=== PATIENT | female | born 1945 | race Caucasian/White ===

== ENCOUNTER 2017-02-07 17:21 | Emergency (ER) | payer MEDICARE, MEDICAID ==
[~2017-02-07] VITALS: Ht 170.2 cm; Wt 50.0 kg
[2017-02-07] VITALS (7 sets, daily range): BP systolic 116–136; BP diastolic 56–66; PULSE 77–88; RESP 20–26; TEMP 98–98.4; O2SAT 94–98
[~2017-02-07 17:21] MED LIST: CETI10CH PO; DILTCD240 PO; FURO1TAB93 PO; GABA400C5 PO; GEMF600 PO; LEVA500T PO; LISI10TA PO; LOVA1TAB47 PO; MAXZTAB PO; METFPOW8 PO; METO50CR OR; MONT10TA2 PO; PARO40TA PO; PENT400 PO; PRED20 PO; PRIM50TA PO; THEO200T27 PO; TIZA2TAB PO; WARF2 PO; XANA0.5T PO; Z.0.OXYGEN INH; ZOLP10TA3 PO; [UNRECOGNIZED DRUG - OTHER]
--- NOTE | 2017-02-07 17:54 | PD ---
HPI Chief Complaint: Respiratory Distress Time Seen by Provider: 17:54 Travel History International Travel<30 days: No Contact w/Intl Traveler<30days: No Traveled to known affect area: No History of Present Illness HPI 72 year old female with history of COPD, diabetes, on oxygen 3 L nasal cannula at home, presents to emergency department for evaluation of increased wheezing and shortness of breath. Patient states this started after smoking 2 cigarettes today. She states she has been smoking tobacco cigarettes for the last 50 years. She states today she bought a pack of cigarettes a tried to smoke 2 cigarettes but ended up with this shortness of breath. Denies any recent illnesses, fever, chills. No cough. No chest pain. No focal deficits or weakness. Patient states she has been increasingly weak with decreased appetite but tells me she has recently been recently diagnosed with lung cancer about to start treatments this week. She has no other symptoms to report. PFSH Past Medical History Hx Anticoagulant Therapy: Yes Asthma: Yes Depression: Yes Heart Rhythm Problems: Yes (TACHYCARDIA) Cancer: Yes (APPENDIX) Cardiovascular Problems: Yes (sinus tach) High Cholesterol: Yes Chemotherapy: No Congestive Heart Failure: No COPD: Yes Cerebrovascular Accident: No Coronary Artery Disease: No Diabetes: Yes Diminished Hearing: No Endocrine: Yes Gastrointestinal Disorders: Yes GERD: Yes Genitourinary: No Hypertension: Yes Immune Disorder: No Musculoskeletal: Yes Neurologic: Yes Psychiatric: Yes Respiratory: Yes (copd) Thyroid Disease: No Ulcer: No Menopausal: Yes Tubal Ligation: Yes Past Surgical History Abdominal Surgery: Yes (APPENDECTOMY,RIGHT HEMICOLONECTOMY ) Appendectomy: Yes Cholecystectomy: Yes Hysterectomy: No Oral Surgery: Yes (TONSILLECTOMY AGE 16) Other Surgery: Yes Social History Alcohol Use: No Tobacco Use: No (QUIT 7 Y/O) Substance Use: No Allergies-Medications (Allergen,Severity, Reaction): Coded Allergies: Aspirin (Verified Allergy, Severe, Ulcers, 02/07/17) Adhesives (Verified Allergy, Unknown, 07/10/15) Reported Meds & Prescriptions Reported Meds & Active Scripts Active Reported Maxzide-25 (Triamterene-Hydrochlorothiazide) 37.5-25 Mg Tab 1 Tab PO DAILY Lisinopril-Hctz 10-12.5 Mg Tab 1 Tab PO DAILY Pentoxifylline CR (Pentoxifylline) 400 Mg Tab 400 Mg PO BID Metoprolol Succinate ER 24 HR (Metoprolol Succinate) 50 Mg Tab 50 Mg PO DAILY Lovastatin 20 Mg Tab 20 Mg PO DAILY Tizanidine (Tizanidine HCl) 2 Mg Tab 2 Mg PO HS Singulair (Montelukast Sodium) 10 Mg Tab 10 Mg PO HS Metformin (Metformin HCl) 500 Mg Tab 500 Mg PO BID With meals Ambien (Zolpidem Tartrate) 10 Mg Tab 10 Mg PO HS PRN Lopid (Gemfibrozil) 600 Mg Tab 600 Mg PO BID Take 30 minutes prior to breakfast and dinner Gabapentin 100 Mg Cap 100 Mg PO BID Lasix (Furosemide) 40 Mg Tab 40 Mg PO DAILY Xanax (Alprazolam) 0.5 Mg Tab 0.5 Mg PO Q8H PRN Diltiazem CD 24 HR 240 Mg Caper 240 Mg PO BID Review of Systems Except as stated in HPI: all other systems reviewed are Neg Physical Exam Narrative GENERAL: Thin chronically ill-appearing elderly female patient, sitting up in bed, in no acute distress. SKIN: Warm and dry. HEAD: Atraumatic. Normocephalic. EYES: Pupils equal and round. No scleral icterus. No injection or drainage. ENT: No nasal bleeding or discharge. Mucous membranes pink and moist. NECK: Trachea midline. No JVD. CARDIOVASCULAR: Regular rate and rhythm. No murmur appreciated. RESPIRATORY: Mild accessory muscle use. Diminished bases, inspiratory and expiratory wheeze. Breath sounds equal bilaterally. GASTROINTESTINAL: Abdomen soft, non-tender, nondistended. Hepatic and splenic margins not palpable. MUSCULOSKELETAL: No obvious deformities. No clubbing. No cyanosis. No edema. NEUROLOGICAL: Awake and alert. No obvious cranial nerve deficits. Motor grossly within normal limits. Normal speech. Data Data Last Documented VS Vital Signs Date Time Temp Pulse Resp B/P Pulse Ox O2 Delivery O2 Flow Rate FiO2 02/07/17 21:48 98.0 79 20 136/57 98 Nasal Cannula 4 Orders Complete Blood Count With Diff (02/07/17 17:50) Basic Metabolic Panel (Bmp) (02/07/17 17:50) B-Type Natriuretic Peptide (02/07/17 17:50) Act Partial Throm Time (Ptt) (02/07/17 17:50) Prothrombin Time / Inr (Pt) (02/07/17 17:50) Magnesium (Mg) (02/07/17 17:50) Ckmb (Isoenzyme) Profile (02/07/17 17:50) Troponin I (02/07/17 17:50) Urinalysis - C+S If Indicated (02/07/17 17:50) Influenzae A/B Antigen (02/07/17 17:50) Blood Culture (02/07/17 17:50) Iv Access Insert/Monitor (02/07/17 17:50) Electrocardiogram (02/07/17 17:50) Ecg Monitoring (02/07/17 17:50) Oximetry (02/07/17 17:50) Oxygen Administration (02/07/17 17:50) Chest, Single Ap (02/07/17 17:50) Sodium Chloride 0.9% Flush (Ns Flush) (02/07/17 18:00) Methylprednisolone So Succ Inj (Solumedr (02/07/17 18:00) Albuterol-Ipratropium Neb (Duoneb Neb) (02/07/17 18:00) Diet Heart Healthy (02/07/17 Dinner) Albuterol-Ipratropium Neb (Duoneb Neb) (02/07/17 20:00) Labs Laboratory Tests Test 02/07/17 02/07/17 17:55 19:35 White Blood Count 12.0 TH/MM3 Red Blood Count 4.11 MIL/MM3 Hemoglobin 13.2 GM/DL Hematocrit 39.6 % Mean Corpuscular Volume 96.3 FL Mean Corpuscular Hemoglobin 32.1 PG Mean Corpuscular Hemoglobin 33.3 % Concent Red Cell Distribution Width 13.9 % Platelet Count 321 TH/MM3 Mean Platelet Volume 8.9 FL Neutrophils (%) (Auto) 80.6 % Lymphocytes (%) (Auto) 10.5 % Monocytes (%) (Auto) 8.4 % Eosinophils (%) (Auto) 0.1 % Basophils (%) (Auto) 0.4 % Neutrophils # (Auto) 9.6 TH/MM3 Lymphocytes # (Auto) 1.3 TH/MM3 Monocytes # (Auto) 1.0 TH/MM3 Eosinophils # (Auto) 0.0 TH/MM3 Basophils # (Auto) 0.1 TH/MM3 CBC Comment DIFF FINAL Differential Comment Prothrombin Time 10.2 SEC Prothromb Time International 0.9 RATIO Ratio Activated Partial 24.4 SEC Thromboplast Time Sodium Level 138 MEQ/L Potassium Level 4.2 MEQ/L Chloride Level 93 MEQ/L Carbon Dioxide Level 38.6 MEQ/L Anion Gap 6 MEQ/L Blood Urea Nitrogen 25 MG/DL Creatinine 0.56 MG/DL Estimat Glomerular Filtration 107 ML/MIN Rate Random Glucose 149 MG/DL Calcium Level 9.5 MG/DL Magnesium Level 1.7 MG/DL Total Creatine Kinase 55 U/L Troponin I LESS THAN 0.02 NG/ML B-Type Natriuretic Peptide 150 PG/ML Urine Color LIGHT-YELLOW Urine Turbidity CLEAR Urine pH 6.0 Urine Specific [place] 1.006 Urine Protein NEG mg/dL Urine Glucose (UA) NEG mg/dL Urine Ketones NEG mg/dL Urine Occult Blood NEG Urine Nitrite NEG Urine Bilirubin NEG Urine Urobilinogen LESS THAN 2.0 MG/DL Urine Leukocyte Esterase NEG Urine WBC 1 /hpf Urine Squamous Epithelial <1 /hpf Cells Urine Mucus FEW /lpf Microscopic Urinalysis Comment CULT NOT INDICATED MDM Medical Decision Making Medical Screen Exam Complete: Yes Emergency Medical Condition: Yes Medical Record Reviewed: Yes Differential Diagnosis COPD exacerbation versus bronchitis versus pneumonia versus influenza Narrative Course 72-year-old female presents to the emergency department for evaluation of shortness of breath with increased wheezing after smoking 2 cigarettes today. Patient appears chronically ill. She is tachypneic with mild accessory muscle use on examination. Inspiratory and expiratory wheeze noted. Patient was given IV Solu-Medrol and DuoNeb 3. CBC is with mild leukocytosis of 12, otherwise unremarkable. BMP is with mild hypercarbia 38.6., Random glucose 149. BNP is 150. Troponin is less than 0.02. Influenza screen is negative. Chest x-ray shows no acute disease. Mild hyperinflation consistent with known underlying emphysema. Following ministration a DuoNeb treatment, patient continues to have some wheezing but reports she feels much better. She is requesting something to eat and to be discharged home. Patient is given a dinner tray. She'll be given additional DuoNeb treatments while she is in the emergency department. Patient has eaten her dinner tray. She states she is feeling much better. She does have DuoNeb treatments at home and a nebulizer machine. She'll be discharged home to continue treatments. She agrees to follow-up with her primary care provider and return immediately with any acute worsening symptoms. 223 patient is still in the room. I am informed that case management is attempting to get her transportation home. I have let my attending Dr. Almodovar know she is still here in case of a change in her status. She remains stable and discharged at this time. Diagnosis Primary Impression: COPD exacerbation Referrals: Primary Care Physician Patient Instructions: COPD (Chronic Obstructive Pulmonary Disease) (ED), General Instructions, Nutrition Guidelines for People with COPD (ED) Departure Forms: Tests/Procedures Additional Instructions: Continue nebulized breathing treatments at home every 2-4 hours as needed Follow-up with a primary care provider Follow-up with your bass fisher Return immediately with any acute worsening of symptoms Med/Other Pt SpecificInfo: No Change to Meds Disposition: 01 DISCHARGE HOME Condition: Stable Melvina Chase Feb 07, 2017 17:54
[2017-02-07] MEDS: RESP: ALBUTEROL 2.5 MG/IPRATROPIUM 0.5 MG NEB (SCH) INH ×4 (18:00→19:54)
[2017-02-07] MEDS ORDERED: methylPREDNISolone SOD SUCC 125 MG/2 ML VIAL IVP ONE (18:00)
[2017-02-07] MEDS ORDERED: SODIUM CHLORIDE 0.9% FLUSH 5 ML FLUSH IVF PRN (18:00)
[2017-02-07] MEDS ORDERED: DILT-64 PO (18:03)
[2017-02-07] MEDS ORDERED: ALPR.5 PO (18:04)
[2017-02-07] MEDS ORDERED: FURO1TAB60 PO (18:05)
[2017-02-07] MEDS ORDERED: GABA100C4 PO (18:06)
[2017-02-07] MEDS ORDERED: GEMF600 PO (18:08)
[2017-02-07] MEDS ORDERED: AMBI10TA PO (18:10)
[2017-02-07] MEDS ORDERED: METF500T PO (18:12)
[2017-02-07] MEDS ORDERED: MONT10TA2 PO (18:13)
[2017-02-07] MEDS ORDERED: TIZA2TAB PO (18:16)
[2017-02-07 18:19] LABS: AUTOMATED NEUTROPHIL # 9.6 TH/MM3 (1.8-7.7); BASOPHIL # 0.1 TH/MM3 (0-0.2); BASOPHIL % 0.4 % (0.0-2.0); EOSINOPHIL % 0.1 % (0.0-4.0); HEMATOCRIT 39.6 % (35.0-46.0); HEMO FLAGS DIFF FINAL; LYMPH % 10.5 % (9.0-44.0); LYMPHOCYTE # 1.3 TH/MM3 (1.0-4.8); MEAN CELL VOLUME 96.3 FL (80.0-100.0); MEAN CORPUSCULAR HEMOGLOBIN 32.1 PG (27.0-34.0); MEAN CORPUSCULAR HGB CONC 33.3 % (32.0-36.0); MONO % 8.4 % (0.0-8.0); NEUT % 80.6 % (16.0-70.0); PLATELET COUNT 321 TH/MM3 (150-450); RED BLOOD COUNT 4.11 MIL/MM3 (4.00-5.30); RED CELL DISTRIBUTION WIDTH 13.9 % (11.6-17.2)
[2017-02-07] MEDS ORDERED: LOVA20TA PO (18:19)
[2017-02-07] MEDS ORDERED: METO50TA11 PO (18:20)
[2017-02-07] MEDS ORDERED: LISI10TA PO (18:22)
[2017-02-07] MEDS ORDERED: PENT400T19 PO (18:22)
[2017-02-07] MEDS ORDERED: MAXZTAB PO (18:24)
[2017-02-07 18:29] LABS: APTT (PATIENT) 24.4 SEC (24.3-30.1); INTERNATIONAL NORMALIZED RATIO 0.9 RATIO; PROTHROMBIN TIME - PATIENT 10.2 SEC (9.8-11.6)
--- NOTE | 2017-02-07 18:42 | RADRPT ---
EXAM DATE/TIME: 02/07/2017 18:02 [facility] COMPARISON: CT PULMONARY ANGIOGRAM, July 11, 2015, 10:39. CHEST SINGLE AP, July 11, 2015, 8:16. INDICATIONS : Short of breath MEDICAL HISTORY : Emphysema SURGICAL HISTORY : None. ENCOUNTER: Initial ACUITY: 1 day PAIN SCORE: 0/10 LOCATION: chest FINDINGS: A single view of the chest demonstrates the lungs to be symmetrically mildly hyperinflated without ev idence of mass, infiltrate or effusion. The cardiomediastinal contours are unremarkable. Osseous st ructures are intact. There are overlying electrocardiogram leads and oxygen tubing. CONCLUSION: No acute disease. Mild hyperinflation consistent with known underlying emphysema. Julian Harmon MD on February 07, 2017 at 18:39 Board Certified Radiologist. This report was verified electronically.
[2017-02-07 18:48] LABS: ANION GAP 6 MEQ/L (5-15); BICARBONATE 38.6 MEQ/L (21.0-32.0); BLOOD UREA NITROGEN 25 MG/DL (7-18); CHLORIDE 93 MEQ/L (98-107); CREATINE KINASE 55 U/L (26-192); GLOMERULAR FILTRATION RATE 107 ML/MIN (>89); MAGNESIUM 1.7 MG/DL (1.5-2.5); POTASSIUM 4.2 MEQ/L (3.5-5.1); SODIUM (NA) 138 MEQ/L (136-145)
[2017-02-07 19:52] LABS: BLOOD, URINE NEG (NEG); COMMENT (UR) CULT NOT INDICATED; CULTURE IF INDICATED CULT NOT INDICATED; GLUCOSE,URINE NEG (NEG); KETONE, URINE NEG (NEG); MUCUS URINE FEW /lpf (OCC); NITRITE,URINE NEG (NEG); SQUAMOUS EPITHELIAL CELL URINE <1 /hpf (0-5); URINE COLOR LIGHT-YELLOW (YELLW/STRAW)
[2017-02-08 07:27] VITALS: BP 214/89; PULSE 85; RESP 24; O2SAT 96
--- NOTE | 2017-02-08 14:46 | EKG ---
Date Performed: 02/07/2017 Time Performed: 17:59:26 PTAGE: 72 years EKG: Sinus rhythm NORMAL ECG PREVIOUS TRACING : 07/11/2015 09.34 Compared to the previous tracing, T wave abnormalities are no longer present DOCTOR: Ilya Ellington Interpretating Date/Time 02/08/2017 14:44:55
== END 2017-02-08 08:51 | disposition home or self-care (01) ==
LOC: NEPE 17:21 → NEPA 02-08 08:51
DX: J44.1 Chronic obstructive pulmonary disease with (acute) exacerbation (principal); J45.909 Unspecified asthma, uncomplicated; F17.210 Nicotine dependence, cigarettes, uncomplicated; I10 Essential (primary) hypertension; E11.9 Type 2 diabetes mellitus without complications; Z79.84 Long term (current) use of oral hypoglycemic drugs; Z79.899 Other long term (current) drug therapy
CPT/HCPCS: 71010; 80048; 81001; 82550; 83735; 83880; 84484; 85025; 85610; 85730; 87040; 87804; 93005; 94640; 94664; 96374; 99285; J2930

== ENCOUNTER 2017-02-12 11:37 | Inpatient (IN) | payer MEDICARE, MEDICAID ==
[~2017-02-12] VITALS: Ht 170.2 cm; Wt 50.0 kg
[2017-02-12] VITALS (10 sets, daily range): BP systolic 116–146; BP diastolic 62–76; PULSE 20–117; RESP 14–16; TEMP 97.3; O2SAT 93–100
[~2017-02-12 11:37] MED LIST changes: +ALPR.5 PO; +AMBI10TA PO; +DILT-64 PO; +FURO1TAB60 PO; +GABA100C4 PO; +LOVA20TA PO; +METF500T PO; +METO50TA11 PO; +PENT400T19 PO
[2017-02-12] MEDS ORDERED: RESP: ALBUTEROL 2.5 MG/IPRATROPIUM 0.5 MG NEB (SCH) INH ONE (12:30)
[2017-02-12] MEDS ORDERED: SODIUM CHLORIDE 0.9% FLUSH 10 ML FLUSH IVF PRN (12:30)
[2017-02-12] MEDS ORDERED: SODIUM CHLOR 0.9% 1000 ML INJ 1,000 ML IV SCH (12:30)
--- NOTE | 2017-02-12 12:39 | PD ---
HPI Chief Complaint: Respiratory Symptoms Time Seen by Provider: 12:07 Travel History International Travel<30 days: No Contact w/Intl Traveler<30days: No Traveled to known affect area: No History of Present Illness HPI This 72-year-old woman with severe COPD, recently diagnosed lung cancer, who presents to the emergency department complaining of worsening weakness shortness of breath and really not been ill to care for self. She states she came in because she hasn't been eating because she can't exclude for herself. She states she is limited by pretty significant dyspnea on exertion has been ongoing for some time. She states that she lives alone. Her neighbor goes to the grocery store for her and has for a couple years. Recently the [place] [facility] is been sending someone a comment 3 times a week to help out with housekeeping. She was in the emergency department now for 5 days ago with increased shortness of breath and was treated for COPD exacerbation. She's on 3 L of home oxygen, follows with Dr. Ferrell. He also was recently diagnosed with lung cancer based on the pad positive spiculated nodule on her imaging. They were electing to forego a biopsy because of her tenuous status, and do some radiation. She has not started this. She denies any cough, no fevers or chills, no chest pain, no other associated complaints. States symptoms been worse since she was in the hospital 5 days ago. History Past Medical History Narrative Medical COPD/asthma, on 3 L of home oxygen, extensive deep plus pack year smoking history Pneumonia, GERD Diabetes CAD Arthritis Anxiety Tetanus Vaccination: < 5 Years Influenza Vaccination: Yes Menopausal: Yes Social History Alcohol Use: No Tobacco Use: Yes (smokes 1/2 pd) Allergies-Medications (Allergen,Severity, Reaction): Coded Allergies: Aspirin (Verified Allergy, Severe, Ulcers, 02/12/17) Adhesives (Verified Allergy, Unknown, 02/12/17) Reported Meds & Prescriptions Reported Meds & Active Scripts Active Reported Maxzide-25 (Triamterene-Hydrochlorothiazide) 37.5-25 Mg Tab 1 Tab PO DAILY Lisinopril-Hctz 10-12.5 Mg Tab 1 Tab PO DAILY Pentoxifylline CR (Pentoxifylline) 400 Mg Tab 400 Mg PO BID Metoprolol Succinate ER 24 HR (Metoprolol Succinate) 50 Mg Tab 50 Mg PO DAILY Lovastatin 20 Mg Tab 20 Mg PO DAILY Tizanidine (Tizanidine HCl) 2 Mg Tab 2 Mg PO HS Singulair (Montelukast Sodium) 10 Mg Tab 10 Mg PO HS Metformin (Metformin HCl) 500 Mg Tab 500 Mg PO BID With meals Ambien (Zolpidem Tartrate) 10 Mg Tab 10 Mg PO HS PRN Lopid (Gemfibrozil) 600 Mg Tab 600 Mg PO BID Take 30 minutes prior to breakfast and dinner Gabapentin 100 Mg Cap 100 Mg PO BID Lasix (Furosemide) 40 Mg Tab 40 Mg PO DAILY Xanax (Alprazolam) 0.5 Mg Tab 0.5 Mg PO Q8H PRN Diltiazem CD 24 HR 240 Mg Caper 240 Mg PO BID Review of Systems Except as stated in HPI: all other systems reviewed are Neg Physical Exam Narrative GENERAL: 72-year-old woman, chronically ill-appearing, no acute distress. SKIN: Warm and dry. HEAD: Atraumatic. Normocephalic. EYES: Pupils equal and round. No scleral icterus. No injection or drainage. ENT: No nasal bleeding or discharge. Mucous membranes pink and moist. NECK: Trachea midline. No JVD. CARDIOVASCULAR: Heart rate rapid but regular. No murmurs. RESPIRATORY: Moderate tachypnea. Able to speak in full sentences. Diminished air movement with mild diffuse wheezing. GASTROINTESTINAL: Abdomen soft, non-tender, nondistended. Hepatic and splenic margins not palpable. MUSCULOSKELETAL: No obvious deformities. No edema. Decreased muscle bulk. NEUROLOGICAL: Awake and alert. No obvious cranial nerve deficits. Motor grossly within normal limits. Normal speech. PSYCHIATRIC: Somewhat anxious appearing. Data Data Last Documented VS Vital Signs Date Time Temp Pulse Resp B/P Pulse Ox O2 Delivery O2 Flow Rate FiO2 02/12/17 14:13 16 96 Nasal Cannula 3.00 02/12/17 14:13 116 116/62 02/12/17 11:39 97.3 Orders Complete Blood Count With Diff (02/12/17 12:20) Comprehensive Metabolic Panel (02/12/17 12:20) B-Type Natriuretic Peptide (02/12/17 12:20) Troponin I (02/12/17 12:20) Iv Access Insert/Monitor (02/12/17 12:20) Ecg Monitoring (02/12/17 12:20) Oximetry (02/12/17 12:20) Oxygen Administration (02/12/17 12:20) Ct Pulmonary Angiogram (02/12/17 12:20) Sodium Chloride 0.9% Flush (Ns Flush) (02/12/17 12:30) Albuterol-Ipratropium Neb (Duoneb Neb) (02/12/17 12:30) Sodium Chlor 0.9% 1000 Ml Inj (Ns 1000 M (02/12/17 12:30) Diet Regular Basic (02/12/17 Lunch) Iohexol 350 Inj (Omnipaque 350 Inj) (02/12/17 13:41) Methylprednisolone So Succ Inj (Solumedr (02/12/17 14:30) Consult Palliative Care (02/12/17 ) (Hub Use Only)Inp Phy Cons/Ref (02/12/17 ) Electrocardiogram (02/12/17 11:35) Labs Laboratory Tests Test 02/12/17 12:40 White Blood Count 9.8 TH/MM3 Red Blood Count 4.68 MIL/MM3 Hemoglobin 14.9 GM/DL Hematocrit 44.8 % Mean Corpuscular Volume 95.8 FL Mean Corpuscular Hemoglobin 31.8 PG Mean Corpuscular Hemoglobin 33.2 % Concent Red Cell Distribution Width 13.0 % Platelet Count 410 TH/MM3 Mean Platelet Volume 9.6 FL Neutrophils (%) (Auto) 72.0 % Lymphocytes (%) (Auto) 16.7 % Monocytes (%) (Auto) 9.3 % Eosinophils (%) (Auto) 0.7 % Basophils (%) (Auto) 1.3 % Neutrophils # (Auto) 7.1 TH/MM3 Lymphocytes # (Auto) 1.6 TH/MM3 Monocytes # (Auto) 0.9 TH/MM3 Eosinophils # (Auto) 0.1 TH/MM3 Basophils # (Auto) 0.1 TH/MM3 CBC Comment DIFF FINAL Differential Comment Sodium Level 143 MEQ/L Potassium Level 3.6 MEQ/L Chloride Level 98 MEQ/L Carbon Dioxide Level 40.5 MEQ/L Anion Gap 5 MEQ/L Blood Urea Nitrogen 18 MG/DL Creatinine 0.57 MG/DL Estimat Glomerular Filtration 105 ML/MIN Rate Random Glucose 138 MG/DL Calcium Level 10.4 MG/DL Total Bilirubin 0.4 MG/DL Aspartate Amino Transf 18 U/L (AST/SGOT) Alanine Aminotransferase 41 U/L (ALT/SGPT) Alkaline Phosphatase 268 U/L Troponin I 0.19 NG/ML B-Type Natriuretic Peptide 666 PG/ML Total Protein 7.2 GM/DL Albumin 3.4 GM/DL [facility] Medical Decision Making Medical Screen Exam Complete: Yes Emergency Medical Condition: Yes Interpretation(s) LABS: CBC unremarkable. CMP: Generally unremarkable. CO2 40.5. Troponin 0.[address] pulmonary angiogram: Emphysematous changes. No PE. Differential Diagnosis COPD, COPD exacerbation, pneumonia, PE, malignancy, other Narrative Course Medical decision making INITIAL: This 72-year-old woman is who appears to have severe baseline COPD with marked limitation her functional status. This appears to be worsening but on a very gradual basis. She was treated for an acute COPD exacerbation. I think she still smoking. She comes in today mostly because of worsening functional status, inability to care for self. I spoke with Floridalma, our trimming caser. She spoke with the patient is not at all interested in placement. States she may be interested in hospice given her severe baseline COPD, worsening functional status, and recent diagnosis of malignancy. She is not sure she is going to be able to complete radiation therapy. We'll rule out PE, check x-ray, check for any other acute cause a could be causing her worsening status. We will talk to her tractor sweeper operator. We will likely plan on admission for treatment for worsening COPD symptoms, and probably palliative care consultation. Patient is agreeable. FINAL: Patient worsening COPD symptoms. Is likely subacute exacerbation. She also had significant limitation in functional decline. I spoke with Dr. Vivas, the patient's tractor sweeper operator. He states the patient has done poorly for several months of weight loss and worsening functional status. He is agreeable palliative care consultation as is the patient. Troponin is elevated as well. We'll plan on admission for treatment COPD exacerbation, steroids, bronchodilators, and will plan on palliative care consultation. Diagnosis Primary Impression: Chronic obstructive pulmonary disease Julio Cesar Salas MD Feb 12, 2017 12:39
[2017-02-12 12:50] LABS: AUTOMATED NEUTROPHIL # 7.1 TH/MM3 (1.8-7.7); BASOPHIL # 0.1 TH/MM3 (0-0.2); BASOPHIL % 1.3 % (0.0-2.0); EOSINOPHIL # 0.1 TH/MM3 (0-0.4); EOSINOPHIL % 0.7 % (0.0-4.0); HEMATOCRIT 44.8 % (35.0-46.0); HEMO FLAGS DIFF FINAL; LYMPH % 16.7 % (9.0-44.0); LYMPHOCYTE # 1.6 TH/MM3 (1.0-4.8); MEAN CELL VOLUME 95.8 FL (80.0-100.0); MEAN CORPUSCULAR HEMOGLOBIN 31.8 PG (27.0-34.0); MEAN CORPUSCULAR HGB CONC 33.2 % (32.0-36.0); MONO % 9.3 % (0.0-8.0); PLATELET COUNT 410 TH/MM3 (150-450); RED BLOOD COUNT 4.68 MIL/MM3 (4.00-5.30); WHITE BLOOD COUNT 9.8 TH/MM3 (4.0-11.0)
[2017-02-12 12:58] LABS: CHLORIDE 98 MEQ/L (98-107); POTASSIUM 3.6 MEQ/L (3.5-5.1); SODIUM (NA) 143 MEQ/L (136-145)
[2017-02-12 13:01] LABS: ANION GAP 5 MEQ/L (5-15); BICARBONATE 40.5 MEQ/L (21.0-32.0)
[2017-02-12 13:02] LABS: BLOOD UREA NITROGEN 18 MG/DL (7-18)
[2017-02-12 13:04] LABS: ALT (GPT) 41 U/L (10-53)
[2017-02-12 13:05] LABS: AST (GOT) 18 U/L (15-37); GLOMERULAR FILTRATION RATE 105 ML/MIN (>89)
[2017-02-12 13:06] LABS: TOTAL BILIRUBIN ADULT 0.4 MG/DL (0.2-1.0)
[2017-02-12 13:07] LABS: ALKALINE PHOSPHATASE 268 U/L (45-117)
[2017-02-12] MEDS ORDERED: IOHEXOL 350 MG/ML 10 ML VIAL (for RAD DIAG) IV ONE (13:41)
--- NOTE | 2017-02-12 14:19 | RADHPO ---
EXAM DATE/TIME: 02/12/2017 13:22 [facility] COMPARISON: CT PULMONARY ANGIOGRAM, July 11, 2015, 10:39. INDICATIONS : Short of breath. IV CONTRAST: 75 cc Omnipaque 350 (iohexol) IV RADIATION DOSE: 5.59 CTDIvol (mGy) MEDICAL HISTORY : Diabetes mellitus type 2. Gastroesophageal reflux disease. Chronic obstructive pulmonary disease.Hype rtension. Asthma. Legally blind. Lung cancer. SURGICAL HISTORY : Cholecystectomy. Appendectomy.Tubal ligation.Hysterectomy. Right hemicolectomy. ENCOUNTER: Initial ACUITY: 1 day PAIN SCALE: 0/10 LOCATION: chest TECHNIQUE: Volumetric scanning of the chest was performed using a pulmonary embolism protocol MIP images were re constructed. Using automated exposure control and adjustment of the mA and/or kV according to patien t size, radiation dose was kept as low as reasonably achievable to obtain optimal diagnostic quality images. FINDINGS: PULMONARY ARTERIES: No filling defects are seen in the pulmonary arteries through the segmental level. LUNGS: Biapical emphysematous changes. There are nonspecific 8mm nodules identified in both lung bases, one on each side. PLEURAE: There is no pleural thickening or pleural effusion. MEDIASTINUM: There is good visualization of the great vessels of the middle mediastinum. No evidence of mediastin al or hilar adenopathy/mass. Granulomatous type calcifications in the left hilar lymph nodes MUSCULOSKELETAL: Within normal limits for patient age. MISCELLANEOUS: The visualized upper abdominal organs demonstrate no acute abnormality. There are granulomatous calci fications in the splenic parenchyma. Both adrenals are prominent but remain adreniform suggesting hyp erplasia CONCLUSION: 1. Significant biapical emphysematous changes with no acute infiltrate or pulmonary embolus. 2. Nonspecific 8mm nodules in both lung bases. I would recommend a three-month noncontrasted CT scan followup to ensure stability. 3. Probable adrenal hyperplasia. Sebastien Bennett MD on February 12, 2017 at 14:10 Board Certified Radiologist. This report was verified electronically.
[2017-02-12] MEDS ORDERED: methylPREDNISolone SOD SUCC 125 MG/2 ML VIAL IV PUSH ONE (14:30)
--- NOTE | 2017-02-12 16:29 | PD.CONS ---
Consult Service Palliative Care Consult Requested By Dr. Salas . Primary Care Physician Sparkle Hallman MD Reason for Consultation a. To assist with evaluation and management of symptoms including: dyspnea, anxiety b. To assist medical decision maker(s) with: better understanding of current medical conditions; weighing benefits/burdens of medical treatment options; making medical treatment decisions. . HPI History of Present Illness Miss Price is a 72-year-old female with past medical history of COPD, recurrent pneumonia, GERD, diabetes, coronary artery disease, arthritis and anxiety. Patient was recently diagnosed with probable lung cancer based on imaging that revealed a spiculated nodule. She elected to forgo a biopsy given tenuous status and was planning to start radiation therapy. It is uncertain which radiation oncologist was going to initiate treatment pathology. Patient has been to [place] emergency department twice in the past week for worsening shortness of breath, she was treated for COPD exacerbation on 02/07/17. Patient presented to [facility] emergency department on 02/12/17 with worsening shortness of breath. Notes indicate she has not been able to care for herself, she has not been eating and her activity is limited by significant shortness of breath with minimal exertion. She lives alone. She has a neighbor glucose to the grocery store for her. The [place] [facility] [employer] sends someone out 3 times a week with to help with housekeeping. At home the patient was on 3 L of oxygen. Her building maintenance supervisor is Dr. Ferrell. ER notes indicate the patient does not want to consider SNF placement. She is considering transition to comfort focused care with hospice support. Emergency room evaluation revealed: * WBC 9.8, hemoglobin 14.9, hematocrit 44.8, platelet 410, neutrophils 72% * sodium 143, potassium 3.6, chloride 98, carbon dioxide 40.5, BUN 18, creatinine 0.57, GFR 105, glucose 138, calcium 10.4 * total bilirubin 0.4, AST 18, ALT 41, alkaline phosphatase 268 * troponin 0.19 * BNP 666 * total protein 7.2, albumin 3.4 * CTA significant biapical emphysematous change with no acute infiltrate or pulmonary embolus, 8mm nodules in both lung bases, probable adrenal hyperplasia. * EKG - sinus tachycardia with PACs, right atrial abnormality, left axis deviation, anterior septal infarct, lateral T wave changes may be due to myocardial ischemia. Discussed with Dr. Salas who requests palliative care consultation for further clarification of treatment goals. Met with patient in the ER, she is dyspneic at rest. She reports worsening shortness of breath, anxiety and general debility in the past few weeks/months. She does not want continued hospitalization. She elects NO CODE. She does not want cardiac resuscitation, shock or ACLS or intubation. I reviewed her medical , social and functional history. We discussed options to continue aggressive care vs. transition to comfort measures. She desires comfort focused care with hospice support. She hopes to get out of the hospital as soon as possible. She hopes to return home, but seems open to care center for brief time to get symptoms better managed. . . Function/Cognitive Trajectory See HPI. . Past Family Social History Coded Allergies: Aspirin (Verified Allergy, Severe, Ulcers, 02/12/17) Adhesives (Verified Allergy, Unknown, 02/12/17) Past Medical History COPD/asthma, on 3 L of home oxygen, extensive deep plus pack year smoking history Pneumonia, GERD Diabetes CAD Arthritis Anxiety . Past Surgical History Appendectomy right hemicolectomy cholecystectomy tonsillectomy age 16 . Reported Medications Reported Meds & Prescriptions Reported Meds & Active Scripts Active Reported Maxzide-25 (Triamterene-Hydrochlorothiazide) 37.5-25 Mg Tab 1 Tab PO DAILY Lisinopril-Hctz 10-12.5 Mg Tab 1 Tab PO DAILY Pentoxifylline CR (Pentoxifylline) 400 Mg Tab 400 Mg PO BID Metoprolol Succinate ER 24 HR (Metoprolol Succinate) 50 Mg Tab 50 Mg PO DAILY Lovastatin 20 Mg Tab 20 Mg PO DAILY Tizanidine (Tizanidine HCl) 2 Mg Tab 2 Mg PO HS Singulair (Montelukast Sodium) 10 Mg Tab 10 Mg PO HS Metformin (Metformin HCl) 500 Mg Tab 500 Mg PO BID With meals Ambien (Zolpidem Tartrate) 10 Mg Tab 10 Mg PO HS PRN Lopid (Gemfibrozil) 600 Mg Tab 600 Mg PO BID Take 30 minutes prior to breakfast and dinner Gabapentin 100 Mg Cap 100 Mg PO BID Lasix (Furosemide) 40 Mg Tab 40 Mg PO DAILY Xanax (Alprazolam) 0.5 Mg Tab 0.5 Mg PO Q8H PRN Diltiazem CD 24 HR 240 Mg Caper 240 Mg PO BID . Current Medications Medications (Trade) Dose Ordered Sig/Juan Route Start Time Stop Time Status Last Admin (NS Flush) 2 ml UNSCH PRN IVF 02/12/17 12:30 . Family History Mother of COPD. No siblings. Substance Use Tobacco: currently smokes half pack per day Alcohol: none. Prescription med abuse: none. Illicits: none. . Psychosocial History Single. Lives alone. Retired. Supported by friends and neighbors. . Spiritual/Cultural Factors Unknown. . Health Care Surrogate: Copy in medical record Date completed: 06/25/15 Health Care Surrogate(s): Designated healthcare surrogate, Raquel Tejada. Today's verbally stated goals: Elects NO CODE. Desires comfort measures with hospice support. . Ethical and Legal Issues Patient is currently capacitated to make her own health care decisions. Should she was capacity she has designated her friend Raquel Tejada as healthcare surrogate. . Physical Exam Vital Signs Date Time Temp Pulse Resp B/P Pulse Ox O2 Delivery O2 Flow Rate FiO2 02/12/17 14:13 16 96 Nasal Cannula 3.00 02/12/17 14:13 116 16 116/62 98 Nasal Cannula 3 02/12/17 12:38 96 Nasal Cannula 3.00 02/12/17 12:35 97 Nasal Cannula 2 02/12/17 12:35 80 14 146/66 97 Nasal Cannula 2 02/12/17 11:43 117 18 96 Nasal Cannula 2 02/12/17 11:40 16 96 Nasal Cannula 2 02/12/17 11:40 96 Nasal Cannula 2 02/12/17 11:39 97.3 117 16 146/67 96 Exam CONSTITUTIONAL/GENERAL: This is thin, chronically ill appearing patient, dyspneic at rest. TUBES/LINES/DRAINS: NC, PIV. SKIN: No jaundice, rashes, or lesions. Ecchymoses on upper extremities. No wounds seen anteriorly. Skin temperature appropriate. Not diaphoretic. HEAD: Atraumatic. Normocephalic. EYES: Pupils equal and round and reactive. Extraocular motions intact. No scleral icterus. No injection or drainage. Fundi not examined. ENT: Hearing grossly normal. Nose without bleeding or purulent drainage. Throat without visible erythema, exudates, masses, or lesions. NECK: Trachea midline. CARDIOVASCULAR: Tachycardic. RESPIRATORY/CHEST: Barrel chest. Symmetric, labored respirations at rest, worsens with conversation. Bilateral course breath sounds, diminished bases with expiratory wheezing. GASTROINTESTINAL: Abdomen soft, non-tender, nondistended. No guarding. Bowel sounds present. GENITOURINARY: Without palpable bladder distension. MUSCULOSKELETAL: No mottling or clubbing. LYMPHATICS: No palpable cervical or supraclavicular adenopathy. NEUROLOGICAL: Awake and alert. Motor and sensory grossly within normal limits. Follows commands. Cognitively sharp. Moves all extremities. PSYCHIATRIC: + anxiety. . Diagnostic Tests Laboratory Laboratory Tests Test 02/12/17 12:40 White Blood Count 9.8 TH/MM3 (4.0-11.0) Red Blood Count 4.68 MIL/MM3 (4.00-5.30) Hemoglobin 14.9 GM/DL (11.6-15.3) Hematocrit 44.8 % (35.0-46.0) Mean Corpuscular Volume 95.8 FL (80.0-100.0) Mean Corpuscular Hemoglobin 31.8 PG (27.0-34.0) Mean Corpuscular Hemoglobin 33.2 % Concent (32.0-36.0) Red Cell Distribution Width 13.0 % (11.6-17.2) Platelet Count 410 TH/MM3 (150-450) Mean Platelet Volume 9.6 FL (7.0-11.0) Neutrophils (%) (Auto) 72.0 % (16.0-70.0) Lymphocytes (%) (Auto) 16.7 % (9.0-44.0) Monocytes (%) (Auto) 9.3 % (0.0-8.0) Eosinophils (%) (Auto) 0.7 % (0.0-4.0) Basophils (%) (Auto) 1.3 % (0.0-2.0) Neutrophils # (Auto) 7.1 TH/MM3 (1.8-7.7) Lymphocytes # (Auto) 1.6 TH/MM3 (1.0-4.8) Monocytes # (Auto) 0.9 TH/MM3 (0-0.9) Eosinophils # (Auto) 0.1 TH/MM3 (0-0.4) Basophils # (Auto) 0.1 TH/MM3 (0-0.2) CBC Comment DIFF FINAL Differential Comment Sodium Level 143 MEQ/L (136-145) Potassium Level 3.6 MEQ/L (3.5-5.1) Chloride Level 98 MEQ/L (98-107) Carbon Dioxide Level 40.5 MEQ/L (21.0-32.0) Anion Gap 5 MEQ/L (5-15) Blood Urea Nitrogen 18 MG/DL (7-18) Creatinine 0.57 MG/DL (0.50-1.00) Estimat Glomerular Filtration 105 ML/MIN Rate (>89) Random Glucose 138 MG/DL (74-106) Calcium Level 10.4 MG/DL (8.5-10.1) Total Bilirubin 0.4 MG/DL (0.2-1.0) Aspartate Amino Transf 18 U/L (15-37) (AST/SGOT) Alanine Aminotransferase 41 U/L (10-53) (ALT/SGPT) Alkaline Phosphatase 268 U/L (45-117) Troponin I 0.19 NG/ML (0.02-0.05) B-Type Natriuretic Peptide 666 PG/ML (0-100) Total Protein 7.2 GM/DL (6.4-8.2) Albumin 3.4 GM/DL (3.4-5.0) Result Diagram: 02/12/17 1240 02/12/17 [address] Angiography 02/12/17 1220 Signed Impressions: Service Date/Time: Sunday, February 12, 2017 13:22 - CONCLUSION: 1. Significant biapical emphysematous changes with no acute infiltrate or pulmonary embolus. 2. Nonspecific 8mm nodules in both lung bases. I would recommend a three-month noncontrasted CT scan followup to ensure stability. 3. Probable adrenal hyperplasia. Sebastien Bennett MD . Patient/Family Conference Present at Family Conference: Met with patient in ED. . Family Conference Time (mins): 30 Family Conference Location: Bedside Issues Discussed: * Palliative care role, purpose, approach * Additional medical, psychosocial, and spiritual history * Patients general health, functional status, and cognitive changes in the months leading up to the current hospitalization * Patient/family understanding of the current medical problems * Patient/family understanding of prognosis * Patients goals of care as best understood from advance directives and/or conversations and/or values * Current medical treatment options and benefits/burdens of those options * Likely scenarios comparing ongoing aggressive care with a transition to comfort measures only * Questions answered to the best of my ability * Palliative care contact information provided Assessment and Plan Disease Oriented Problem List: (1) Chronic obstructive pulmonary disease (2) Lung nodules Comment: non specific 8mm lung nodules in both lungs on CTA dated 02/12/17 . (3) Elevated troponin (4) Diabetes Symptom Scale: (1) Fatigue 0-10 Scale: Unable to quantify Comment: increasing in the past few months. (2) Weight loss 0-10 Scale: Unable to quantify Comment: lost 100 pound in the past 1.5 years, unintentional. . (3) Dyspnea 0-10 Scale: Unable to quantify Comment: dyspnea at rest, worsens with conversation and exertion. . (4) Anxiety 0-10 Scale: Unable to quantify Pertinent Non-Medical Issues Psychosocial: single. Lives alone. Supported by her friend and neighbor who does grocery shopping and [place] [employer] who helps with housekeeping. Spiritual: none. Legal:Patient is currently capacitated to make her own health care decisions. Should she was capacity she has designated her friend Raquel Tejada as healthcare surrogate. Ethical issues impacting care: no known concerns at this time. . Important Contacts * Raquel robbie, friend/[facility]: [phone] or [phone] . Prognosis 72 year old patient with COPD and repeat COPD exacerbation and pneumonia. She has had significant functional decline in the past few months. Overall prognosis is poor. . Code Status: No Code Plan * Decision Maker: Patient is currently capacitated to make her own health care decisions. Should she was capacity she has designated her friend Raquel Tejada as healthcare surrogate. * NO CODE * Palliative care met with patient: Met with patient in the ER, she is dyspneic at rest. She reports worsening shortness of breath, anxiety and general debility in the past few weeks/months. She does not want continued hospitalization. She elects NO CODE. She does not want cardiac resuscitation, shock or ACLS or intubation. I reviewed her medical, social and functional history. We discussed options to continue aggressive care vs. transition to comfort measures. She desires comfort focused care with hospice support. She hopes to get out of the hospital as soon as possible. She hopes to return home, but seems open to care center for brief time to get symptoms better managed. * SYMPTOMS: anxiety: secondary to shortness of breath. Dyspnea: secondary to COPD. Questionable lung cancer. Oxygen dependent at home. * Palliative care number provided. * Palliative care will continue to follow throughout hospital course to assist with symptom management and clarification of goals as needed. . Time Spent Total Floor Time (mins): 45 Face to Face Time (mins): 30 >50% Counseling/Coord of Care: Yes Thank you for the opportunity to participate in the care of Ms. Price. Attestation To help prompt me to consider important information that might be impacting today's encounter and assessment, information from prior notes written by myself or my colleagues may have been "brought forward" into today's note. My signature on this note, however, is an attestation that I personally performed the exam, history, and/or decision-making noted today, and, unless otherwise indicated, the interactions with patient, family, and staff as well as the review of records all occurred today. I also attest that the listed assessment and stated plan reflect my best clinical judgment today based on the combination of historical information, prior notes, and today's exam/ interactions. When time spent is documented, it refers only to time spent today by the signer, or if indicated, combined time spent today by collaborating physician/nurse practitioner. . BISHOP ELLSI Feb 12, 2017 16:29
[2017-02-12] MEDS ORDERED: SODIUM CHLORIDE 0.9% FLUSH 10 ML FLUSH IV FLUSH PRN (18:15)
[2017-02-12] MEDS ORDERED: ACETAMINOPHEN/HYDROcodone 325 MG/5 MG TAB PO PRN (18:15)
[2017-02-12] MEDS ORDERED: ACETAMINOPHEN 325 MG TAB PO PRN (18:15)
[2017-02-12] MEDS ORDERED: ONDANSETRON HCL 4 MG/2 ML VIAL IVP PRN (18:15)
[2017-02-12] MEDS ORDERED: ACETAMINOPHEN/HYDROcodone 325 MG/7.5 MG TAB PO PRN (18:15)
[2017-02-12] MEDS ORDERED: NALOXONE HCL 0.4 MG/ML AMP IV PRN (18:15)
--- NOTE | 2017-02-12 18:40 | HHI.HP ---
cc: Sparkle Hlalman MD [facility]ician Sparkle Hallman MD Admission Diagnosis COPD exacerbation, dyspnea on exertion Diagnoses: (1) COPD exacerbation (2) Weight loss (3) Lung nodules (4) Elevated troponin Chief Complaint: Dyspnea Travel History International Travel<30 Days: No Contact w/Intl Traveler <30 Da: No Traveled to Known Affected Are: No History of Present Illness The patient is a 72-year-old female with history of severe COPD and lung nodules. She sees Dr. Hallman for pulmonology. She was recently given a diagnosis of lung cancer. Over the last couple days she has had worsening dyspnea and has felt generalized weakness. Her activity is limited by dyspnea on exertion. She has had significant weight loss, more than 100 pounds in the past year. Reportedly there was a spiculated nodule noted on imaging of her lungs. She did not have a biopsy secondary to her poor functional status. Decision was apparently made to start radiation therapy, which has not begun. She states that she wants to focus on comfort care. She has already been evaluated by the palliative care service and hospice consult has been requested. Review of Systems Constitutional: DENIES: Fever, Chills, Night Sweats Eyes: DENIES: Blurred vision, Vision loss Ears, nose, mouth, throat: DENIES: Hearing loss Respiratory: COMPLAINS OF: Cough, Wheezing, Sputum production, Shortness of breath Cardiovascular: COMPLAINS OF: Dyspnea on Exertion, DENIES: Chest pain, Palpitations, Lower Extremity Edema Gastrointestinal: DENIES: Abdominal pain, Constipation, Diarrhea, Nausea, Vomiting Genitourinary: DENIES: Urinary frequency, Urinary incontinence, Urgency, Hematuria, Dysuria, Nocturia Musculoskeletal: DENIES: Joint pain, Muscle aches Integumentary: DENIES: Pruritus, Rash Hematologic/lymphatic: DENIES: Bruising Neurologic: DENIES: Headache Past Family Social History Past Medical History COPD/asthma, on 3 L of home oxygen, extensive deep plus pack year smoking history Pneumonia, GERD Diabetes CAD Arthritis Anxiety . Past Surgical History Appendectomy right hemicolectomy cholecystectomy tonsillectomy age 16 . Reported Medications Maxzide-25 (Triamterene-Hydrochlorothiazide) 37.5-25 Mg Tab 1 Tab PO DAILY Lisinopril-Hctz 10-12.5 Mg Tab 1 Tab PO DAILY Pentoxifylline CR (Pentoxifylline) 400 Mg Tab 400 Mg PO BID Metoprolol Succinate ER 24 HR (Metoprolol Succinate) 50 Mg Tab 50 Mg PO DAILY Lovastatin 20 Mg Tab 20 Mg PO DAILY Tizanidine (Tizanidine HCl) 2 Mg Tab 2 Mg PO HS Singulair (Montelukast Sodium) 10 Mg Tab 10 Mg PO HS Metformin (Metformin HCl) 500 Mg Tab 500 Mg PO BID With meals Ambien (Zolpidem Tartrate) 10 Mg Tab 10 Mg PO HS PRN Lopid (Gemfibrozil) 600 Mg Tab 600 Mg PO BID Take 30 minutes prior to breakfast and dinner Gabapentin 100 Mg Cap 100 Mg PO BID Lasix (Furosemide) 40 Mg Tab 40 Mg PO DAILY Xanax (Alprazolam) 0.5 Mg Tab 0.5 Mg PO Q8H PRN Diltiazem CD 24 HR 240 Mg Caper 240 Mg PO BID Allergies: Coded Allergies: Aspirin (Verified Allergy, Severe, Ulcers, 02/12/17) Adhesives (Verified Allergy, Unknown, 02/12/17) Family History The patient states that she is adopted and does not know her family history. Physical Exam Vital Signs Vital Signs Date Time Temp Pulse Resp B/P Pulse Ox O2 Delivery O2 Flow Rate FiO2 02/12/17 18:27 96 16 119/76 96 Nasal Cannula 2 02/12/17 18:27 16 96 Nasal Cannula 2 02/12/17 17:38 97 16 119/74 100 Nasal Cannula 2 02/12/17 17:38 Nasal Cannula 3 02/12/17 16:28 78 16 119/72 97 Room Air 02/12/17 16:28 16 99 Nasal Cannula 3 02/12/17 14:13 16 96 Nasal Cannula 3.00 02/12/17 14:13 116 16 116/62 98 Nasal Cannula 3 02/12/17 12:38 96 Nasal Cannula 3.00 02/12/17 12:35 97 Nasal Cannula 2 02/12/17 12:35 80 14 146/66 97 Nasal Cannula 2 02/12/17 11:43 117 18 96 Nasal Cannula 2 02/12/17 11:40 16 96 Nasal Cannula 2 02/12/17 11:40 96 Nasal Cannula 2 02/12/17 11:39 97.3 117 16 146/67 96 Physical Exam GENERAL: Cachectic elderly female in no acute distress. HEENT: Normocephalic, atraumatic. Pupils equal, round and reactive. Extraocular movements intact. No scleral icterus. No injection or drainage. Oropharynx is clear. Mucous membranes are moist. CARDIOVASCULAR: Regular rate and rhythm without murmurs, gallops, or rubs. RESPIRATORY: Scattered wheeze. Poor air entry throughout. Breathing is somewhat labored. GASTROINTESTINAL: Abdomen soft, non-tender, nondistended. EXTREMITIES: No lower extremity edema. No calf tenderness. PSYCH: Alert and oriented x 3. Laboratory Laboratory Tests Test 02/12/17 12:40 White Blood Count 9.8 Red Blood Count 4.68 Hemoglobin 14.9 Hematocrit 44.8 Mean Corpuscular Volume 95.8 Mean Corpuscular Hemoglobin 31.8 Mean Corpuscular Hemoglobin 33.2 Concent Red Cell Distribution Width 13.0 Platelet Count 410 Mean Platelet Volume 9.6 Neutrophils (%) (Auto) 72.0 Lymphocytes (%) (Auto) 16.7 Monocytes (%) (Auto) 9.3 Eosinophils (%) (Auto) 0.7 Basophils (%) (Auto) 1.3 Neutrophils # (Auto) 7.1 Lymphocytes # (Auto) 1.6 Monocytes # (Auto) 0.9 Eosinophils # (Auto) 0.1 Basophils # (Auto) 0.1 CBC Comment DIFF FINAL Differential Comment Sodium Level 143 Potassium Level 3.6 Chloride Level 98 Carbon Dioxide Level 40.5 Anion Gap 5 Blood Urea Nitrogen 18 Creatinine 0.57 Estimat Glomerular Filtration 105 Rate Random Glucose 138 Calcium Level 10.4 Total Bilirubin 0.4 Aspartate Amino Transf 18 (AST/SGOT) Alanine Aminotransferase 41 (ALT/SGPT) Alkaline Phosphatase 268 Troponin I 0.19 B-Type Natriuretic Peptide 666 Total Protein 7.2 Albumin 3.4 Result Diagram: 02/12/17 1240 02/12/17 [address] Angiography 02/12/17 1220 Signed Impressions: Service Date/Time: Sunday, February 12, 2017 13:22 - CONCLUSION: 1. Significant biapical emphysematous changes with no acute infiltrate or pulmonary embolus. 2. Nonspecific 8mm nodules in both lung bases. I would recommend a three-month noncontrasted CT scan followup to ensure stability. 3. Probable adrenal hyperplasia. Sebastien Bennett MD Assessment and Plan Assessment and Plan 1. COPD exacerbation: Plan would be to start IV steroids and bronchodilator therapy. Continue supplemental oxygen. Patient has spoken with palliative care and is requesting comfort care measures. Hospice consult requested. 2. Reported history of lung cancer: The patient has had significant weight loss and has had lung nodules noted on imaging. She was felt to be a poor candidate for biopsy. She was scheduled to start radiation therapy soon, but would prefer to forego aggressive treatment and focus on comfort care measures. 3. Diabetes mellitus: Monitor Accu-Cheks and cover with sliding scale insulin. 4. CAD: Currently asymptomatic. Patient has poor overall prognosis and is appropriate for hospice care. Hospice consult has been requested. Plan for discharge to hospice care center if arrangements are made. Code Status DO NOT RESUSCITATE Jon Dumont MD Feb 12, 2017 18:40
[2017-02-12] MEDS ORDERED: DEXTROSE 50% IN WATER 50 ML VIAL(D50) IV PUSH PRN (18:45)
[2017-02-12] MEDS ORDERED: RESP: ALBUTEROL 2.5 MG/3 ML NEB (PRN) INH (18:45)
[2017-02-12] MEDS ORDERED: GLUCAGON 1 MG/ML VIAL OTHER PRN (18:45)
[2017-02-12] MEDS ORDERED: LORazepam 2 MG/ML VIAL IV PUSH ONE (19:45)
[2017-02-12] MEDS ORDERED: methylPREDNISolone SOD SUCC 125 MG/2 ML VIAL IVP SCH (20:00)
[2017-02-12] MEDS ORDERED: INSULIN ASPART SUPPLEMENTAL SCALE SQ SCH (21:00)
[2017-02-12] MEDS ORDERED: SODIUM CHLORIDE 0.9% FLUSH 10 ML FLUSH IV FLUSH SCH (21:00)
[2017-02-12] MEDS ORDERED: RESP: ALBUTEROL 2.5 MG/IPRATROPIUM 0.5 MG NEB (SCH) INH (22:00)
--- NOTE | 2017-02-13 16:28 | EKG ---
Date Performed: 02/12/2017 Time Performed: 11:35:06 PTAGE: 72 years EKG: Sinus tachycardia Right atrial abnormality Acute anterior myocardial infarction, which is n ew from the old tracing Abnormal ECG PREVIOUS TRACING : 02/07/2017 17.59 DOCTOR: Erasto Almodovar Interpretating Date/Time 02/13/2017 16:26:35
== END 2017-02-12 21:55 | disposition short-term general hospital (02) | DRG 191 ==
LOC: PHED 11:37 → PHEDA 15:42
PROVIDERS: ADMIT Family Medicine; ATTEND Family Medicine
DX: J44.1 Chronic obstructive pulmonary disease with (acute) exacerbation (principal); C34.11 Malignant neoplasm of upper lobe, right bronchus or lung; E27.8 Other specified disorders of adrenal gland; R06.00 Dyspnea, unspecified; Z99.81 Dependence on supplemental oxygen; J45.909 Unspecified asthma, uncomplicated; E11.9 Type 2 diabetes mellitus without complications; R63.4 Abnormal weight loss; R74.8 Abnormal levels of other serum enzymes; K21.9 Gastro-esophageal reflux disease without esophagitis; I25.10 Atherosclerotic heart disease of native coronary artery without angina pectoris; M19.90 Unspecified osteoarthritis, unspecified site; F06.4 Anxiety disorder due to known physiological condition; Z87.01 Personal history of pneumonia (recurrent); Z51.5 Encounter for palliative care; F17.210 Nicotine dependence, cigarettes, uncomplicated; Z66 Do not resuscitate
CPT/HCPCS: 71275; 80053; 83880; 84484; 85025; 93005; 94664; 96361; 96374; 99205; 99212; G0463; J1815; J2060; J2930; J7030; Q9967

== ENCOUNTER 2017-08-05 12:01 | Emergency (ER) | payer MEDICARE, MEDICAID ==
[~2017-08-05] VITALS: Ht 170.2 cm; Wt 55.0 kg
[~2017-08-05 12:01] MED LIST changes: -CETI10CH PO; -DILTCD240 PO; -FURO1TAB93 PO; -GABA400C5 PO; -LEVA500T PO; -LOVA1TAB47 PO; -METFPOW8 PO; -METO50CR OR; -PARO40TA PO; -PENT400 PO; -PRED20 PO; -PRIM50TA PO; -THEO200T27 PO; -WARF2 PO; -XANA0.5T PO; -Z.0.OXYGEN INH; -ZOLP10TA3 PO; -[UNRECOGNIZED DRUG - OTHER]
[2017-08-05 12:15] VITALS: BP 117/67; PULSE 93; RESP 20; TEMP 98.3; O2SAT 97; O2SAT 98
[2017-08-05] MEDS ORDERED: SODIUM CHLORIDE 0.9% FLUSH 10 ML FLUSH IVF PRN (12:15)
[2017-08-05] MEDS ORDERED: SODIUM CHLOR 0.9% 1000 ML INJ 1,000 ML IV ONE (12:15)
[2017-08-05] MEDS ORDERED: methylPREDNISolone SOD SUCC 125 MG/2 ML VIAL IV PUSH ONE (12:15)
[2017-08-05] MEDS: RESP: ALBUTEROL 2.5 MG/IPRATROPIUM 0.5 MG NEB (SCH) INH (12:27)
[2017-08-05 12:29] VITALS: O2SAT 97
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
[2017-08-05 12:54] VITALS: BP 119/71; PULSE 90; RESP 18; O2SAT 98
[2017-08-05 12:57] LABS: AUTOMATED NEUTROPHIL # 2.8 TH/MM3 (1.8-7.7); BASOPHIL % 0.4 % (0.0-2.0); EOSINOPHIL % 0.4 % (0.0-4.0); HEMATOCRIT 42.3 % (35.0-46.0); HEMO FLAGS DIFF FINAL; LYMPH % 13.3 % (9.0-44.0); LYMPHOCYTE # 0.6 TH/MM3 (1.0-4.8); MEAN CELL VOLUME 88.2 FL (80.0-100.0); MEAN CORPUSCULAR HEMOGLOBIN 29.4 PG (27.0-34.0); MEAN CORPUSCULAR HGB CONC 33.3 % (32.0-36.0); MONO % 19.9 % (0.0-8.0); PLATELET COUNT 423 TH/MM3 (150-450); RED BLOOD COUNT 4.79 MIL/MM3 (4.00-5.30); RED CELL DISTRIBUTION WIDTH 13.6 % (11.6-17.2); WHITE BLOOD COUNT 4.2 TH/MM3 (4.0-11.0)
--- NOTE | 2017-08-05 13:08 | RADRPT ---
EXAM DATE/TIME: 08/05/2017 12:25 [facility] COMPARISON: CHEST SINGLE AP, February 07, 2017, 18:02. INDICATIONS : Short of breath. MEDICAL HISTORY : Diabetes mellitus type II. Chronic obstructive pulmonary disease. Hypertension. Asthma, lung cance r. GERD SURGICAL HISTORY : Cholecystectomy. Appendectomy. Tubal ligation. Hysterectomy, right hemicolectomy ENCOUNTER: Initial ACUITY: 1 day PAIN SCORE: 0/10 LOCATION: Bilateral chest FINDINGS: There is increased density within the left suprahilar region which is partially obscured by overlying breathing apparatus. Follow up chest x-ray with breathing apparatus removed from this area would be helpful for better characterization. The right lung is clear. The heart is stable. Degenerative c hanges and scoliosis of the thoracic spine are noted. CONCLUSION: 1. Questionable increased focal density within the left suprahilar region which is partially obscured by breathing apparatus. Repeat chest x-ray with breathing apparatus moved to another position may b e helpful for further characterization of the questioned increased left suprahilar density. 2. Degenerative changes and scoliosis of the thoracolumbar spine. Cheikh Miramontes MD on August 05, 2017 at 12:50 Board Certified Radiologist. This report was verified electronically.
[2017-08-05 13:12] LABS: CHLORIDE 94 MEQ/L (98-107); POTASSIUM 3.6 MEQ/L (3.5-5.1); SODIUM (NA) 134 MEQ/L (136-145)
[2017-08-05 13:16] LABS: ANION GAP 9 MEQ/L (5-15); BICARBONATE 31.5 MEQ/L (21.0-32.0); BLOOD UREA NITROGEN 57 MG/DL (7-18); MAGNESIUM 2.4 MG/DL (1.5-2.5)
[2017-08-05 13:18] LABS: APTT (PATIENT) 23.2 SEC (24.3-30.1); PROTHROMBIN TIME - PATIENT 10.5 SEC (9.8-11.6)
[2017-08-05 13:19] LABS: ALT (GPT) 71 U/L (10-53); AST (GOT) 58 U/L (15-37); GLOMERULAR FILTRATION RATE 32 ML/MIN (>89)
[2017-08-05 13:22] LABS: ALKALINE PHOSPHATASE 331 U/L (45-117)
--- NOTE | 2017-08-05 14:11 | RADRPT ---
EXAM DATE/TIME: 08/05/2017 13:33 [facility] COMPARISON: CHEST SINGLE AP, August 05, 2017, 12:25. INDICATIONS : Short of breath. MEDICAL HISTORY : Diabetes mellitus type II. Chronic obstructive pulmonary disease. SURGICAL HISTORY : Cholecystectomy. Appendectomy. Tubal ligation. Hysterectomy, right ENCOUNTER: Initial ACUITY: 1 day PAIN SCORE: 0/10 LOCATION: Bilateral chest FINDINGS: There are chronic interstitial changes. Exam appears stable from previous examination. No nodular mas s is seen. The visualized bony structures are grossly intact. The heart is normal in size. CONCLUSION: 1. Chronic appearing interstitial changes. No acute abnormality. Richard Perea MD on August 05, 2017 at 14:09 Board Certified Radiologist. This report was verified electronically.
[2017-08-05 14:25] VITALS: BP 136/65; PULSE 92; RESP 20; O2SAT 99
[2017-08-05] MEDS ORDERED: ALBUAER3 INH (14:27)
[2017-08-05] MEDS ORDERED: PRED20 PO (14:27)
[2017-08-05] MEDS: RESP: ALBUTEROL 2.5 MG/3 ML NEB (SCH) INH ×2 (14:30→14:45)
[2017-08-05 15:38] VITALS: BP 154/70; PULSE 90; RESP 18; O2SAT 97
[2017-08-05 16:00] VITALS: BP 139/77
[2017-08-05 16:23] LABS: BLOOD, URINE NEG (NEG); GLUCOSE,URINE NEG (NEG); KETONE, URINE NEG (NEG); NITRITE,URINE NEG (NEG)
[2017-08-05 16:30] LABS: URINE COLOR YELLOW (YELLW/STRAW)
[2017-08-05 16:31] LABS: COMMENT (UR) CULT NOT INDICATED; CULTURE IF INDICATED CULT NOT INDICATED; MUCUS URINE FEW /lpf (OCC); RBC, URINE 0-3 /hpf (0-3); SQUAMOUS EPITHELIAL CELL URINE 0-5 /hpf (0-5); WBC, URINE 0-2 /hpf (0-5)
== END 2017-08-05 16:45 | disposition home or self-care (01) ==
LOC: PHED 12:01
DX: J44.1 Chronic obstructive pulmonary disease with (acute) exacerbation (principal); N28.9 Disorder of kidney and ureter, unspecified; E87.1 Hypo-osmolality and hyponatremia; R74.0 Nonspecific elevation of levels of transaminase and lactic acid dehydrogenase [LDH]; F17.210 Nicotine dependence, cigarettes, uncomplicated; I10 Essential (primary) hypertension; E11.9 Type 2 diabetes mellitus without complications; Z79.84 Long term (current) use of oral hypoglycemic drugs; Z79.899 Other long term (current) drug therapy
CPT/HCPCS: 71010; 80053; 81001; 83735; 83880; 85025; 85610; 85730; 87040; 94640; 94664; 96361; 96374; 99284; J2930; J7030; J7613

== ENCOUNTER 2017-08-07 15:52 | Observation (INO) | payer MEDICARE, MEDICAID ==
[~2017-08-07] VITALS: Ht 170.2 cm; Wt 53.8 kg
[2017-08-07] VITALS (10 sets, daily range): BP systolic 137–180; BP diastolic 67–80; PULSE 108–118; RESP 18–22; TEMP 98.7; O2SAT 93–99
[~2017-08-07 15:52] MED LIST changes: +ALBUAER3 INH; -PENT400T19 PO; +PRED20 PO
[2017-08-07] MEDS ORDERED: methylPREDNISolone SOD SUCC 125 MG/2 ML VIAL IV PUSH ONE (16:45)
--- NOTE | 2017-08-07 16:45 | PD ---
HPI Chief Complaint: Respiratory Symptoms Time Seen by Provider: 16:33 Travel History International Travel<30 days: No Contact w/Intl Traveler<30days: No Traveled to known affect area: No History of Present Illness HPI 72-year-old female complains of wheezing and shortness of breath. Patient states that the symptoms started several days ago. Patient has history of COPD and on home O2. Patient was seen in emergency room 2 days ago with wheezing and shortness of breath. Patient was given Solu-Medrol IV, DuoNeb nebulizer treatment. Patient was discharged home with prescription for prednisone and albuterol inhaler. Patient has not filled the prescription. Patient is a smoker. Patient states that she use a nebulizer twice a day. Patient states that cough is productive. Patient denies any headache. Patient denies any chest pain. Patient denies abdominal pain. Patient states that she has intermittent nausea vomiting. Patient denies any dysuria or frequency. Patient denies any fever chills. Patient has history of severe COPD and lung nodule. Patient has history of lung CA. Patient has been seen by radiation oncologist. Patient also has history of GERD, diabetes, CAD, arthritis and anxiety. PFSH Past Medical History Hx Anticoagulant Therapy: Yes Asthma: Yes Depression: Yes Heart Rhythm Problems: Yes (TACHYCARDIA) Cancer: Yes (APPENDIX) Cardiovascular Problems: Yes High Cholesterol: Yes Chemotherapy: No Congestive Heart Failure: No COPD: Yes Cerebrovascular Accident: No Coronary Artery Disease: No Diabetes: Yes Diminished Hearing: No Endocrine: Yes Gastrointestinal Disorders: Yes GERD: Yes Genitourinary: No Hypertension: Yes Immune Disorder: No Musculoskeletal: Yes Neurologic: Yes Psychiatric: Yes Respiratory: Yes (COPD) Thyroid Disease: No Ulcer: No Menopausal: Yes Tubal Ligation: Yes Past Surgical History Abdominal Surgery: Yes (APPENDECTOMY,RIGHT HEMICOLONECTOMY ) Appendectomy: Yes Cholecystectomy: Yes Hysterectomy: Yes Oral Surgery: Yes (TONSILLECTOMY AGE 16) Other Surgery: Yes Social History Alcohol Use: No Tobacco Use: Yes (smokes 1/2 pd) Substance Use: No Allergies-Medications (Allergen,Severity, Reaction): Coded Allergies: aspirin (Unverified Allergy, Severe, Ulcers, 08/07/17) adhesive (Unverified Allergy, Unknown, 08/07/17) Reported Meds & Prescriptions Reported Meds & Active Scripts Active Proair Hfa 8.5 GM Inh (Albuterol Sulfate) 90 Mcg/Act Aer 2 Puff INH Q4-6H PRN 108 mcg/actuation Prednisone 20 Mg Tab 20 Mg PO BID 5 Days Reported Maxzide-25 (Triamterene-Hydrochlorothiazide) 37.5-25 Mg Tab 1 Tab PO DAILY Lisinopril-Hctz 10-12.5 Mg Tab 1 Tab PO DAILY Metoprolol Succinate ER 24 HR (Metoprolol Succinate) 50 Mg Tab 50 Mg PO DAILY Lovastatin 20 Mg Tab 20 Mg PO DAILY Tizanidine (Tizanidine HCl) 2 Mg Tab 2 Mg PO HS Singulair (Montelukast Sodium) 10 Mg Tab 10 Mg PO HS Metformin (Metformin HCl) 500 Mg Tab 500 Mg PO BID With meals Ambien (Zolpidem Tartrate) 10 Mg Tab 10 Mg PO HS PRN Lopid (Gemfibrozil) 600 Mg Tab 600 Mg PO BID Take 30 minutes prior to breakfast and dinner Gabapentin 100 Mg Cap 100 Mg PO BID Lasix (Furosemide) 40 Mg Tab 40 Mg PO DAILY Xanax (Alprazolam) 0.5 Mg Tab 0.5 Mg PO Q8H PRN Diltiazem CD 24 HR 240 Mg Caper 240 Mg PO BID Review of Systems General / Constitutional: No: Fever Eyes: No: Visual changes HENT: No: Headaches Cardiovascular: No: Chest Pain or Discomfort Respiratory: Positive: Cough, Shortness of Breath, Wheezing Gastrointestinal: No: Abdominal Pain Genitourinary: No: Dysuria Musculoskeletal: No: Pain Skin: No Rash Neurologic: No: Weakness Psychiatric: No: Depression Endocrine: No: Polydipsia Hematologic/Lymphatic: No: Easy Bruising Physical Exam Narrative GENERAL: Well-nourished, well-developed patient. SKIN: Focused skin assessment warm/dry. HEAD: Normocephalic. EYES: No scleral icterus. No injection or drainage. NECK: Supple, trachea midline. No JVD or lymphadenopathy. CARDIOVASCULAR: Regular rate and rhythm without murmurs, gallops, or rubs. RESPIRATORY: Patient has decreased breath sounds bilaterally. Patient has moderate expiratory wheezes bilaterally. Patient has rhonchi cardiovascular. GASTROINTESTINAL: Abdomen soft, non-tender, nondistended. MUSCULOSKELETAL: No cyanosis, or edema. BACK: Nontender without obvious deformity. No CVA tenderness. Neurologic exam normal. Data Data Last Documented VS Vital Signs Date Time Temp Pulse Resp B/P (MAP) Pulse Ox O2 Delivery O2 Flow Rate FiO2 08/07/17 18:05 97 Nasal Cannula 2.00 08/07/17 18:00 113 18 08/07/17 16:51 98.7 180/80 (113) Orders Orders Complete Blood Count With Diff (08/07/17 16:40) Comprehensive Metabolic Panel (08/07/17 16:40) Prothrombin Time / Inr (Pt) (08/07/17 16:40) Act Partial Throm Time (Ptt) (08/07/17 16:40) Blood Culture (08/07/17 16:40) Influenzae A/B Antigen (08/07/17 16:40) Chest, Single Ap (08/07/17 16:40) Iv Access Insert/Monitor (08/07/17 16:40) Ecg Monitoring (08/07/17 16:40) Oximetry (08/07/17 16:40) Methylprednisolone So Succ Inj (Solumedr (08/07/17 16:45) Albuterol-Ipratropium Neb (Duoneb Neb) (08/07/17 16:45) Cefepime Inj (Maxipime Inj) (08/07/17 19:15) Azithromycin Inj (Zithromax Inj) (08/07/17 19:15) Labs Laboratory Tests Test 08/07/17 17:15 White Blood Count 8.5 TH/MM3 Red Blood Count 4.86 MIL/MM3 Hemoglobin 14.2 GM/DL Hematocrit 42.4 % Mean Corpuscular Volume 87.2 FL Mean Corpuscular Hemoglobin 29.3 PG Mean Corpuscular Hemoglobin Concent 33.5 % Red Cell Distribution Width 14.0 % Platelet Count 435 TH/MM3 Mean Platelet Volume 8.1 FL Neutrophils (%) (Auto) 85.7 % Lymphocytes (%) (Auto) 6.1 % Monocytes (%) (Auto) 7.7 % Eosinophils (%) (Auto) 0.2 % Basophils (%) (Auto) 0.3 % Neutrophils # (Auto) 7.3 TH/MM3 Lymphocytes # (Auto) 0.5 TH/MM3 Monocytes # (Auto) 0.7 TH/MM3 Eosinophils # (Auto) 0.0 TH/MM3 Basophils # (Auto) 0.0 TH/MM3 CBC Comment DIFF FINAL Differential Comment Prothrombin Time 11.1 SEC Prothromb Time International Ratio 1.0 RATIO Activated Partial Thromboplast Time 24.8 SEC Blood Urea Nitrogen 76 MG/DL Creatinine 2.30 MG/DL Random Glucose 148 MG/DL Total Protein 7.0 GM/DL Albumin 3.2 GM/DL Calcium Level 10.2 MG/DL Alkaline Phosphatase 330 U/L Aspartate Amino Transf (AST/SGOT) 78 U/L Alanine Aminotransferase (ALT/SGPT) 150 U/L Total Bilirubin 1.7 MG/DL Sodium Level 136 MEQ/L Potassium Level 4.1 MEQ/L Chloride Level 97 MEQ/L Carbon Dioxide Level 28.1 MEQ/L Anion Gap 11 MEQ/L Estimat Glomerular Filtration Rate 21 ML/MIN MDM Medical Decision Making Medical Screen Exam Complete: Yes Emergency Medical Condition: Yes Interpretation(s) Last Impressions Chest X-Ray 08/07/17 1640 Signed Impressions: Service Date/Time: Monday, August 07, 2017 17:00 - CONCLUSION: 1. Mild elevation left hemidiaphragm with associated left basilar atelectasis/ scarring. 2. Partially imaged apparent mildly dilated air-filled loops of small bowel in the upper abdomen. There is also increased lucency below the left hemidiaphragm which is likely related to adjacent bowel or stomach. Consider further evaluation with formal abdominal radiographs as clinically warranted. Harpreet Hills MD 1800 p.m. CBC within normal limit. WBC 8.5. 85 neutrophil. BUN 76. Creatinine 2.30. Differential Diagnosis Differential diagnosis including acute exacerbation of COPD, bronchitis, pneumonia, PE, pneumothorax. Narrative Course 72-year-old female with wheezing, productive cough, shortness of breath. History COPD. Patient is a smoker. Albuterol with Atrovent unit dose treatment 3. Solu-Medrol 125 mg IV. Normal saline solution 1 L IV bolus. Normal saline solution 100 cc an hour. Cefepime 1 g IV. Zithromax 500 mg IV. Diagnosis Primary Impression: COPD with acute exacerbation Additional Impression: Acute kidney injury superimposed on chronic kidney disease Admitting Information Admitting Physician Requests: Diogenes Cody MD Aug 07, 2017 16:45
[2017-08-07] MEDS: RESP: ALBUTEROL 2.5 MG/IPRATROPIUM 0.5 MG NEB (SCH) INH (16:55)
--- NOTE | 2017-08-07 17:13 | RADRPT ---
EXAM DATE/TIME: 08/07/2017 17:00 [facility] COMPARISON: CHEST SINGLE AP, August 05, 2017, 13:33. INDICATIONS : Short of breath MEDICAL HISTORY : Chronic obstructive pulmonary disease. Hypertension Diabetes mellitus type II . SURGICAL HISTORY : Tubal ligation. Cholecystectomy. ENCOUNTER: Initial ACUITY: 1 day PAIN SCORE: 0/10 LOCATION: Bilateral chest FINDINGS: Mild diffuse interstitial prominence. Minimal left basilar airspace disease. Elevation of the left he midiaphragm. Cardiomediastinal contours are within normal limits. There is less portions of the upper abdomen partially imaged multiple loops of apparently distended air-filled small bowel measuring up to approximately 4.1 cm. There is increased lucency below the left hemidiaphragm. CONCLUSION: 1. Mild elevation left hemidiaphragm with associated left basilar atelectasis/scarring. 2. Partially imaged apparent mildly dilated air-filled loops of small bowel in the upper abdomen. The re is also increased lucency below the left hemidiaphragm which is likely related to adjacent bowel o r stomach. Consider further evaluation with formal abdominal radiographs as clinically warranted. Harpreet Hills MD on August 07, 2017 at 17:07 Board Certified Radiologist. This report was verified electronically.
[2017-08-07 17:27] LABS: AUTOMATED NEUTROPHIL # 7.3 TH/MM3 (1.8-7.7); BASOPHIL % 0.3 % (0.0-2.0); EOSINOPHIL % 0.2 % (0.0-4.0); HEMATOCRIT 42.4 % (35.0-46.0); HEMO FLAGS DIFF FINAL; LYMPH % 6.1 % (9.0-44.0); LYMPHOCYTE # 0.5 TH/MM3 (1.0-4.8); MEAN CELL VOLUME 87.2 FL (80.0-100.0); MEAN CORPUSCULAR HEMOGLOBIN 29.3 PG (27.0-34.0); MEAN CORPUSCULAR HGB CONC 33.5 % (32.0-36.0); MONO % 7.7 % (0.0-8.0); NEUT % 85.7 % (16.0-70.0); PLATELET COUNT 435 TH/MM3 (150-450); RED BLOOD COUNT 4.86 MIL/MM3 (4.00-5.30); WHITE BLOOD COUNT 8.5 TH/MM3 (4.0-11.0)
[2017-08-07 17:36] LABS: CHLORIDE 97 MEQ/L (98-107); POTASSIUM 4.1 MEQ/L (3.5-5.1); SODIUM (NA) 136 MEQ/L (136-145)
[2017-08-07 17:41] LABS: ANION GAP 11 MEQ/L (5-15); BICARBONATE 28.1 MEQ/L (21.0-32.0)
[2017-08-07 17:45] LABS: ALT (GPT) 150 U/L (10-53); AST (GOT) 78 U/L (15-37); BLOOD UREA NITROGEN 76 MG/DL (7-18); GLOMERULAR FILTRATION RATE 21 ML/MIN (>89)
[2017-08-07 17:46] LABS: TOTAL BILIRUBIN ADULT 1.7 MG/DL (0.2-1.0)
[2017-08-07 17:56] LABS: ALKALINE PHOSPHATASE 330 U/L (45-117)
[2017-08-07 18:05] LABS: APTT (PATIENT) 24.8 SEC (24.3-30.1); PROTHROMBIN TIME - PATIENT 11.1 SEC (9.8-11.6)
[2017-08-07] MEDS ORDERED: CEFEPIME INJ 1,000 MG in SODIUM CHLORIDE 0.9% INJ 100 ML IV ONE (19:15)
[2017-08-07] MEDS ORDERED: AZITHROMYCIN INJ 500 MG in SODIUM CHLOR 0.9% 250 ML INJ 250 ML IV ONE (19:15)
[2017-08-07] MEDS ORDERED: ALPRAZolam 0.5 MG TAB PO PRN (19:30)
[2017-08-07] MEDS ORDERED: ACETAMINOPHEN 325 MG TAB PO PRN (19:30)
[2017-08-07] MEDS ORDERED: BISACODYL 10 MG SUPP RECTAL PRN (19:30)
[2017-08-07] MEDS ORDERED: LACTULOSE SYRUP 20 GM/30 ML CUP PO PRN (19:30)
[2017-08-07] MEDS ORDERED: MAGNESIUM HYDROXIDE SUSP 30 ML CUP PO PRN (19:30)
[2017-08-07] MEDS ORDERED: GLUCAGON 1 MG/ML VIAL OTHER PRN (19:30)
[2017-08-07] MEDS ORDERED: MORPHINE SULFATE 4 MG/ML INJ IV PUSH PRN (19:30)
[2017-08-07] MEDS ORDERED: DEXTROSE 50% IN WATER 50 ML VIAL(D50) IV PRN (19:30)
[2017-08-07] MEDS ORDERED: ONDANSETRON HCL 4 MG/2 ML VIAL IVP PRN (19:30)
[2017-08-07] MEDS ORDERED: RESP: ALBUTEROL 2.5 MG/IPRATROPIUM 0.5 MG NEB (PRN) NEB (19:30)
[2017-08-07] MEDS ORDERED: SENNOSIDES 8.6 MG TAB PO PRN (19:30)
[2017-08-07] MEDS ORDERED: ZOLPIDEM TARTRATE 10 MG TAB PO PRN (19:30)
[2017-08-07] MEDS ORDERED: SODIUM CHLORIDE 0.9% FLUSH 10 ML FLUSH IV FLUSH PRN (19:30)
[2017-08-07] MEDS ORDERED: PILL SPLITTER OTHER PRN (20:15)
[2017-08-07] MEDS: RESP: ALBUTEROL 2.5 MG/IPRATROPIUM 0.5 MG NEB (SCH) NEB (20:25)
[2017-08-07] MEDS ORDERED: MONTELUKAST SODIUM 10 MG TAB PO SCH (21:00)
[2017-08-07] MEDS: GEMFIBROZIL 600 MG TAB PO SCH (23:08)
[2017-08-07] MEDS: BUDESONIDE-FORMOTEROL 160/4.5 MCG INHALER INH SCH (23:08)
[2017-08-07] MEDS: DILTIAZEM-CD 240 MG CAP ER PO SCH (23:08)
[2017-08-07] MEDS: guaiFENesin E.R. 600 MG TAB PO SCH (23:08)
[2017-08-07] MEDS: GABAPENTIN 100 MG CAP PO SCH (23:08)
[2017-08-07] MEDS: SODIUM CHLORIDE 0.9% FLUSH 10 ML FLUSH IV FLUSH SCH (23:09)
[2017-08-07] MEDS: DOCUSATE SODIUM 50 MG/SENNA 8.6 MG TAB PO SCH (23:09)
[2017-08-07] MEDS: ACETAMINOPHEN/HYDROcodone 325 MG/5 MG TAB PO PRN (23:11)
[2017-08-07] MEDS: methylPREDNISolone SOD SUCC 40 MG/1 ML VIAL IV PUSH SCH (23:19)
[2017-08-07] MEDS: INSULIN ASPART SUPPLEMENTAL SCALE SQ SCH (23:19)
[2017-08-08 00:05] VITALS: BP 152/65; PULSE 115; RESP 12; TEMP 98.8; O2SAT 90
[2017-08-08] MEDS: methylPREDNISolone SOD SUCC 40 MG/1 ML VIAL IV PUSH SCH ×2 (06:32→12:00)
[2017-08-08] MEDS: ACETAMINOPHEN/HYDROcodone 325 MG/5 MG TAB PO PRN (06:34)
[2017-08-08] MEDS: RESP: ALBUTEROL 2.5 MG/IPRATROPIUM 0.5 MG NEB (SCH) NEB ×2 (07:27→11:18)
[2017-08-08 07:31] VITALS: O2SAT 87
[2017-08-08 07:31] LABS: AUTOMATED NEUTROPHIL # 10.9 TH/MM3 (1.8-7.7); BASOPHIL % 0.1 % (0.0-2.0); CHLORIDE 91 MEQ/L (98-107); HEMATOCRIT 44.4 % (35.0-46.0); LYMPH % 5.3 % (9.0-44.0); LYMPHOCYTE # 0.6 TH/MM3 (1.0-4.8); MEAN CELL VOLUME 89.3 FL (80.0-100.0); MEAN CORPUSCULAR HEMOGLOBIN 29.2 PG (27.0-34.0); MEAN CORPUSCULAR HGB CONC 32.7 % (32.0-36.0); MONO % 6.1 % (0.0-8.0); NEUT % 88.5 % (16.0-70.0); PLATELET COUNT 384 TH/MM3 (150-450); POTASSIUM 3.9 MEQ/L (3.5-5.1); RED BLOOD COUNT 4.97 MIL/MM3 (4.00-5.30); RED CELL DISTRIBUTION WIDTH 14.4 % (11.6-17.2); SODIUM (NA) 135 MEQ/L (136-145); WHITE BLOOD COUNT 12.2 TH/MM3 (4.0-11.0)
[2017-08-08 07:35] LABS: HEMO FLAGS AUTO DIFF
[2017-08-08 07:39] LABS: ANION GAP 14 MEQ/L (5-15); BICARBONATE 30.4 MEQ/L (21.0-32.0)
[2017-08-08 07:51] LABS: ALKALINE PHOSPHATASE 305 U/L (45-117); ALT (GPT) 132 U/L (10-53); AST (GOT) 46 U/L (15-37); BLOOD UREA NITROGEN 91 MG/DL (7-18); GLOMERULAR FILTRATION RATE 19 ML/MIN (>89); TOTAL BILIRUBIN ADULT 1.3 MG/DL (0.2-1.0)
[2017-08-08] MEDS: INSULIN ASPART SUPPLEMENTAL SCALE SQ SCH ×2 (08:00→12:00)
[2017-08-08 08:10] LABS: SCAN/DIFF AUTO DIFF CONFIRMED
[2017-08-08] MEDS: DOCUSATE SODIUM 50 MG/SENNA 8.6 MG TAB PO SCH (09:00)
[2017-08-08] MEDS ORDERED: FUROSEMIDE 40 MG TAB PO SCH (09:00)
[2017-08-08] MEDS ORDERED: HEPARIN SODIUM - SQ 10,000 UNITS/ML VIAL SQ SCH (09:00)
[2017-08-08] MEDS: SODIUM CHLORIDE 0.9% FLUSH 10 ML FLUSH IV FLUSH SCH (09:00)
[2017-08-08] MEDS ORDERED: METOPROLOL SUCCINATE 50 MG EXTENDED RELEASE TAB PO SCH (09:00)
[2017-08-08] MEDS ORDERED: PRAVASTATIN SOD 20 MG TAB PO SCH (09:00)
[2017-08-08 09:33] VITALS: BP 139/90; PULSE 119; RESP 22; TEMP 96.3; O2SAT 88
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
[2017-08-08] MEDS: BUDESONIDE-FORMOTEROL 160/4.5 MCG INHALER INH SCH (12:41)
[2017-08-08] MEDS: GABAPENTIN 100 MG CAP PO SCH (12:43)
[2017-08-08] MEDS: guaiFENesin E.R. 600 MG TAB PO SCH (12:43)
[2017-08-08] MEDS: DILTIAZEM-CD 240 MG CAP ER PO SCH (12:43)
[2017-08-08] MEDS: GEMFIBROZIL 600 MG TAB PO SCH (12:43)
[2017-08-08 14:36] VITALS: BP 181/97; PULSE 116; RESP 18; TEMP 96.9; O2SAT 92
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
== END 2017-08-08 14:53 | disposition hospice, home (50) ==
LOC: PHED 15:52 → UNDOADMOB 19:22 → PHEDA 19:22 → PH3A 22:48 → PHEDA 22:48 → UNDODISOB 08-08 14:53
PROVIDERS: ADMIT Hospitalist; ATTEND Hospitalist
DX: C34.90 Malignant neoplasm of unspecified part of unspecified bronchus or lung (principal); J96.21 Acute and chronic respiratory failure with hypoxia; N17.9 Acute kidney failure, unspecified; J44.1 Chronic obstructive pulmonary disease with (acute) exacerbation; J98.11 Atelectasis; N18.9 Chronic kidney disease, unspecified; I25.10 Atherosclerotic heart disease of native coronary artery without angina pectoris; I13.0 Hypertensive heart and chronic kidney disease with heart failure and stage 1 through stage 4 chronic kidney disease, or unspecified chronic kidney disease; Z99.81 Dependence on supplemental oxygen
CPT/HCPCS: 71010; 80053; 82948; 85025; 85610; 85730; 87040; 87804; 94640; 94664; 96365; 96366; 96372; 96375; 96376; 99285; G0378; J0456; J0692; J1644; J1815; J2920; J2930; J7050